=== PATIENT | female | born 1955 | race Two or more races ===

== ENCOUNTER 2017-12-09 15:56 | Outpatient (CLI) | payer OTHER ==
[~2017-12-09 15:56] MED LIST: ACETAMINOOPHEN-1 TAB PO; CIPROFLOXACIN750 MG PO; CLONAZEPAM1 MG PO; COLACE100 MG PO; DOCUSATE SODIU100 MG PO; METHYLPRED4 MG/DOSE- PO; NEURONTIN PO; NEURONTIN800 MG PO; PERCOCET 5/3251 TAB PO; PLAVIX75 MG PO; SIMVASTATIN20 MG PO; SYNTHROID50 MCG PO; ZETIA10 MG PO
== END 2017-12-09 17:00 | disposition home or self-care (01) ==
LOC: RAD 15:56
DX: R07.9 Chest pain, unspecified (principal)

== ENCOUNTER 2017-12-17 11:54 | Inpatient (IN) | payer OTHER ==
[~2017-12-17] VITALS: Ht 152.4 cm; Wt 56.2 kg
[2017-12-25] MEDS ORDERED: GABAPENTIN800 MG PO (09:58)
[2017-12-25] MEDS ORDERED: AMOX-CLAV 875-1 EACH PO (09:59)
[2017-12-25] MEDS ORDERED: DOCUSATE SODIU100 MG PO (09:59)
[2017-12-25] MEDS ORDERED: CLONAZEPAM1 MG PO (10:00)
[2017-12-25] MEDS ORDERED: PERCOCET 5-3251 EACH PO (10:00)
[2017-12-25] MEDS ORDERED: ACETAMINOPHEN-1 EAC2 PO (11:41)
== END 2017-12-25 11:50 | disposition home or self-care (01) | DRG 520 ==
LOC: O/R 12-24 06:05 → PED 12-24 06:05 → SURH 12-24 12:00 → SURG 12-24 15:32 → PED 12-24 15:44
PROVIDERS: Orthopaedic Surgery Orthopaedic Surgery of the Spine
PROC: 0QP004Z Removal of Internal Fixation Device from Lumbar Vertebra, Open Approach (ICD-10-PCS; 2017-12-24)
PROC: 00NY0ZZ Release Lumbar Spinal Cord, Open Approach (ICD-10-PCS; principal; 2017-12-24 14:30)
DX: M48.061 Spinal stenosis, lumbar region without neurogenic claudication (principal); M54.16 Radiculopathy, lumbar region; E03.8 Other specified hypothyroidism

== ENCOUNTER 2024-05-06 12:30 | Inpatient (IN) | payer OTHER ==
[~2024-05-06] VITALS: Ht 152.4 cm; Wt 55.3 kg
[~2024-05-06 12:30] MED LIST changes: +ACETAMINOPHEN-1 EAC2 PO; +AMOX-CLAV 875-1 EACH PO; +GABAPENTIN800 MG PO; +PERCOCET 5-3251 EACH PO
[2024-05-06 15:46] VITALS: BP 134/75
[2024-05-06] MEDS ORDERED: PLAVIX75 MG PO (15:46)
[2024-05-06] MEDS ORDERED: LEVOTHYROXINE25 MCG PO (15:46)
[2024-05-11] MEDS ORDERED: BUPIVACAINE HCL/MPF 0.5% 30ML VIAL ONE (07:16)
[2024-05-11] MEDS ORDERED: CEFAZOLIN SODIUM 1,000 MG VIAL ONE ×2 (07:17→10:39)
[2024-05-11] MEDS ORDERED: METHYLPREDNISOLONE SOD SUCC 125 MG VIAL ONE ×2 (07:18→10:39)
[2024-05-11] MEDS ORDERED: ENALAPRILAT DIHYDRATE 1.25 MG/ML VIAL IV PRN (07:30)
[2024-05-11] MEDS ORDERED: 0.9 % SODIUM CHLORIDE 1,000 ML IV SCH (07:30)
[2024-05-11] MEDS ORDERED: PROMETHAZINE HCL 50 MG/ML AMPUL IM PRN (07:30)
[2024-05-11] MEDS ORDERED: ACETAMINOPHEN-1 EAC2 PO (07:35)
[2024-05-11] MEDS ORDERED: MEDROLPACK PO (07:36)
[2024-05-11] MEDS ORDERED: COLACE100 MG PO (07:36)
[2024-05-11] MEDS ORDERED: BUPIVACAINE HCL 30 ML VIAL IJ ONE (09:00)
[2024-05-11] MEDS ORDERED: TAMSULOSIN HCL 0.4 MG CAP PO SCH (09:00)
[2024-05-11] MEDS ORDERED: CEFAZOLIN SODIUM 1,000 MG in 0.9 % SODIUM CHLORIDE 50 ML IV SCH (09:00)
[2024-05-11] MEDS ORDERED: VANCOMYCIN HCL 1,000 MG VIAL SPEPROC ONE (09:00)
[2024-05-11] MEDS ORDERED: VANCOMYCIN HCL 1,000 MG in 0.9 % SODIUM CHLORIDE 250 ML IV SCH (09:00)
[2024-05-11] MEDS ORDERED: HEMOSTATIC MATRIX WITH THROMBIN KIT TOP ONE (09:00)
[2024-05-11] MEDS ORDERED: MORPHINE SULFATE 4 MG/ML CARTRIDGE IV SCH (09:00)
[2024-05-11] MEDS ORDERED: METHYLPREDNISOLONE SOD SUCC 125 MG VIAL IV SCH (09:00)
[2024-05-11] MEDS ORDERED: METHYLPREDNISOLONE ACETATE 80 MG/ML VIAL IJ ONE (09:00)
[2024-05-11] MEDS ORDERED: VANCOMYCIN HCL 1,000 MG VIAL IV ONE (09:00)
[2024-05-11] MEDS ORDERED: ISOPROPYL ALCOHOL 30 ML OUNCE TOP ONE (09:00)
[2024-05-11] MEDS ORDERED: METHYLPREDNISOLONE SOD SUCC 125 MG VIAL IV ONE ×2 (09:00)
[2024-05-11] MEDS ORDERED: SIMVASTATIN 20 MG TABLET PO SCH (09:00)
[2024-05-11] MEDS ORDERED: LIDOCAINE HCL 1%/EPINEPHRINE 20ML VIAL IJ ONE (09:00)
[2024-05-11] MEDS ORDERED: FAMOtidine 20 MG TABLET PO SCH (09:00)
[2024-05-11] MEDS ORDERED: DOCUSATE SODIUM 100MG CAP PO SCH (09:00)
[2024-05-11] MEDS ORDERED: VANCOMYCIN HCL 1,000 MG VIAL IR ONE (09:00)
[2024-05-11] MEDS ORDERED: CEFAZOLIN SODIUM 1,000 MG VIAL IV ONE (09:00)
[2024-05-11] MEDS ORDERED: MORPHINE SULFATE 4 MG/ML VIAL IV ONE ×2 (11:05→11:35)
[2024-05-11 13:57] VITALS: BP 134/75; O2SAT 98
[2024-05-11 15:40] VITALS: BP 130/70; O2SAT 100
[2024-05-11] MEDS ORDERED: ONDANSETRON HCL 2 MG/ML VIAL IV PRN (18:15)
[2024-05-11 20:00] VITALS: BP 121/69; O2SAT 96
[2024-05-12] MEDS ORDERED: SODIUM CHLORIDE 0.45 % 1,000 ML IV SCH
[2024-05-12 01:00] VITALS: BP 131/67; O2SAT 98
[2024-05-12 04:00] VITALS: BP 123/76; O2SAT 97
[2024-05-12] MEDS ORDERED: LEVOTHYROXINE SODIUM 25 MCG TABLET PO SCH (06:00)
[2024-05-12] MEDS ORDERED: ACETAMINOPHEN WITH CODEINE 1 UDTAB TABLET PO PRN (06:00)
[2024-05-12 07:31] LABS: CALCIUM 8.9 mg/dL (8.5-10.1); CREATININE SERUM 0.64 mg/dL (0.55-1.02); GFR 91.47; POTASSIUM 4.22 mEq/L (3.5-5.1)
[2024-05-12 08:18] VITALS: BP 121/50; O2SAT 98
== END 2024-05-12 11:41 | disposition home or self-care (01) | DRG 473 ==
LOC: O/R 12:30 → PED 05-11 05:25
PROVIDERS: ADMIT Orthopaedic Surgery Orthopaedic Surgery of the Spine; ATTEND Orthopaedic Surgery Orthopaedic Surgery of the Spine
PROC: 0RT30ZZ Resection of Cervical Vertebral Disc, Open Approach (ICD-10-PCS; 2024-05-11)
PROC: 0PB40ZZ Excision of Thoracic Vertebra, Open Approach (ICD-10-PCS; 2024-05-11)
PROC: 07DS0ZZ Extraction of Vertebral Bone Marrow, Open Approach (ICD-10-PCS; 2024-05-11)
PROC: 4A1104G Monitoring of Peripheral Nervous Electrical Activity, Intraoperative, Open Approach (ICD-10-PCS; 2024-05-11)
PROC: 0RG10A0 Fusion of Cervical Vertebral Joint with Interbody Fusion Device, Anterior Approach, Anterior Column, Open Approach (ICD-10-PCS; principal; 2024-05-11 15:30)
DX: M50.322 Other cervical disc degeneration at C5-C6 level (principal); M54.12 Radiculopathy, cervical region; E03.9 Hypothyroidism, unspecified

== ENCOUNTER 2025-06-08 13:35 | Day surgery (SDC) | payer OTHER ==
[2025-06-03 15:23] VITALS: BP 153/76
[~2025-06-08] VITALS: Ht 152.4 cm; Wt 54.0 kg
[~2025-06-08 13:35] MED LIST changes: +LEVOTHYROXINE25 MCG PO; +MEDROLPACK PO; +PRILOSEC OTC20 MG PO
[2025-06-08] MEDS ORDERED: CEFAZOLIN SODIUM 1,000 MG VIAL ONE ×2 (14:20→21:08)
[2025-06-08] MEDS ORDERED: VANCOMYCIN HCL 1,000 MG VIAL ONE ×2 (14:20→16:12)
[2025-06-08] MEDS ORDERED: HEMOSTATIC MATRIX WITH THROMBIN KIT TOP ONE (15:51)
[2025-06-08] MEDS ORDERED: METHYLPREDNISOLONE SOD SUCC 125 MG VIAL ONE ×2 (15:52→21:08)
[2025-06-08] MEDS ORDERED: TRANEXAMIC ACID 100MG/1ML (1000MG) AMPUL ONE (15:53)
[2025-06-08] MEDS ORDERED: ENALAPRILAT DIHYDRATE 1.25 MG/ML VIAL IV PRN (16:15)
[2025-06-08] MEDS ORDERED: 0.9 % SODIUM CHLORIDE 1,000 ML IV SCH (16:15)
[2025-06-08] MEDS ORDERED: PROMETHAZINE HCL 50 MG/ML AMPUL IM PRN (16:15)
[2025-06-08] MEDS ORDERED: SIMVASTATIN 20 MG TABLET PO SCH (17:00)
[2025-06-08] MEDS ORDERED: DOCUSATE SODIUM 100MG CAP PO SCH (17:00)
[2025-06-08] MEDS ORDERED: MORPHINE SULFATE 4 MG/ML CARTRIDGE IV SCH (17:00)
[2025-06-08] MEDS ORDERED: CEFAZOLIN SODIUM 1,000 MG in 0.9 % SODIUM CHLORIDE 50 ML IV SCH (17:00)
[2025-06-08] MEDS ORDERED: METHYLPREDNISOLONE SOD SUCC 125 MG VIAL IV SCH (17:00)
[2025-06-08] MEDS ORDERED: AMOX-CLAV 875-1 EACH PO (17:46)
[2025-06-08] MEDS ORDERED: ACETAMINOPHEN-1 EAC2 PO (17:46)
[2025-06-08] MEDS ORDERED: MEDROLPACK PO (17:46)
[2025-06-08] MEDS ORDERED: COLACE100 MG PO (17:47)
[2025-06-08] MEDS ORDERED: NEURONTIN800 MG PO (17:47)
[2025-06-08] MEDS ORDERED: ZOFRAN8 MG PO (17:47)
[2025-06-08] MEDS ORDERED: ACETAMINOPHEN 500 MG GEL..CAP PO SCH (20:00)
[2025-06-08] MEDS ORDERED: GABAPENTIN 800 MG TABLET PO SCH (21:00)
[2025-06-08] MEDS ORDERED: VANCOMYCIN HCL 1,000 MG VIAL IV SCH (21:00)
[2025-06-09] MEDS ORDERED: SODIUM CHLORIDE 0.45 % 1,000 ML IV SCH
[2025-06-09] MEDS ORDERED: LEVOTHYROXINE SODIUM 25 MCG TABLET PO SCH (06:00)
[2025-06-09] MEDS ORDERED: ACETAMINOPHEN WITH CODEINE 1 UDTAB TABLET PO PRN (06:00)
[2025-06-09] MEDS ORDERED: TAMSULOSIN HCL 0.4 MG CAP PO SCH (09:00)
== END 2025-06-08 21:45 | disposition home or self-care (01) ==
LOC: CIR.AMB 13:35
PROVIDERS: ATTEND Orthopaedic Surgery Orthopaedic Surgery of the Spine
DX: M46.1 Sacroiliitis, not elsewhere classified (principal)
CPT/HCPCS: 27279; C1776